=== PATIENT | female | born 1980 | race Caucasian/White ===

== ENCOUNTER 2017-07-15 18:08 | Emergency (ER) | payer BC, OTHER ==
[~2017-07-15] VITALS: Ht 175.3 cm; Wt 92.8 kg
[2017-07-15] MEDS ORDERED: TYLE325T5 PO (18:13)
[2017-07-15] MEDS ORDERED: IBUP-1114 PO (18:13)
[2017-07-15] MEDS ORDERED: OXYCODONE/APAP 5MG/325MG(BULK FOR ED) 1 TABLET PO ONE (19:15)
[2017-07-15] MEDS ORDERED: ONDANSETRON 4 MG ORAL DISINTEGRATING TAB (S0181) PO ONE (19:15)
[2017-07-15 19:16] VITALS: BP 142/91
== END 2017-07-15 19:45 | disposition home or self-care (01) ==
LOC: M ED 18:08
DX: K08.89 Other specified disorders of teeth and supporting structures (principal); Z88.5 Allergy status to narcotic agent

== ENCOUNTER → 2021-12-26 | Outpatient (CLI) | payer BC ==
[~2021-12-26] MED LIST: IBUP-1114 PO; TYLE325T5 PO
== END ==
LOC: M LABSMTC 10:25
PROVIDERS: ATTEND Anesthesiology
DX: Z01.812 Encounter for preprocedural laboratory examination (principal); Z20.822 Contact with and (suspected) exposure to COVID-19

== ENCOUNTER 2021-12-30 06:03 | Day surgery (SDC) | payer BC ==
[~2021-12-30] VITALS: Ht 177.8 cm; Wt 106.1 kg
[~2021-12-30 06:03] MED LIST changes: +LIDOCAINE 1% MDV 20ML VIAL SQ PRN; +LR 1,000 ML IV ONE; +ceFAZolin SOD 2 GM in IV 1 EA IV ONE
[2021-12-30] MEDS ORDERED: HYDR12.55 PO (06:28)
[2021-12-30] MEDS ORDERED: SUMA100T2 PO (06:28)
[2021-12-30] MEDS ORDERED: BUPIVACAINE HCL 0.5% 30 ML VIAL As Ordered ONE (07:14)
[2021-12-30] MEDS ORDERED: dexameTHASONE 4 MG/ML 1ML VIAL (J1100 PER 1MG) As Ordered ONE ×2 (07:14→08:05)
[2021-12-30] MEDS ORDERED: LIDOCAINE 1% MDV 20ML VIAL As Ordered ONE (07:14)
[2021-12-30] MEDS ORDERED: NEOSPORIN GU IRRIG 20 ML VIAL As Ordered ONE (07:15)
[2021-12-30] MEDS ORDERED: GENTAMICIN SULF 80MG/2ML VIAL As Ordered ONE (07:15)
[2021-12-30] MEDS ORDERED: fentaNYL 100 MCG/2 ML INJECTION As Ordered ONE (07:18)
[2021-12-30] MEDS ORDERED: LIDOCAINE 2% 100MG/5ML SDV (FOR ANES.) As Ordered ONE (07:18)
[2021-12-30] MEDS ORDERED: MIDAZOLAM INJ 2MG/2ML VIAL (J2250 PER 1MG) As Ordered ONE (07:18)
[2021-12-30] MEDS ORDERED: ONDANSETRON 4MG/2ML VIAL As Ordered ONE (07:18)
[2021-12-30] MEDS ORDERED: propofoL 500 MG/50 ML VIAL As Ordered ONE (07:18)
[2021-12-30] MEDS ORDERED: KETOROLAC 60MG 2ML VIAL As Ordered ONE (07:22)
[2021-12-30] MEDS ORDERED: SCOPOLAMINE 1MG TRANSDERMAL PATCH As Ordered ONE (07:30)
[2021-12-30 07:46] LABS: HCG, SERUM QUALITATIVE NEGATIVE (NEGATIVE)
[2021-12-30] MEDS ORDERED: SCOPOLAMINE 1MG TRANSDERMAL PATCH TOP ONE (07:50)
[2021-12-30 09:10] VITALS: BP 149/95
== END 2021-12-30 09:35 | disposition home or self-care (01) ==
LOC: M SDC 06:03
PROVIDERS: ATTEND Podiatrist
DX: M20.11 Hallux valgus (acquired), right foot (principal); M79.671 Pain in right foot; Z88.5 Allergy status to narcotic agent
CPT/HCPCS: 28296; 36415; 73630; 84703; 88300; C1713; J0690; J1100; J1580; J1885; J2250; J2405; J3010